=== PATIENT | female | born 1985 | race Caucasian/White ===

== ENCOUNTER 2020-10-17 00:33 | Day surgery (SDC) | payer OTHER, SELFPAY ==
[2020-10-16 10:08] VITALS: BMI 26.4
--- NOTE | 2020-10-16 12:19 | WPDANESEPPF ---
Anes - Initial Pre Proc Eval Procedure: Operation Date: 10/17/20 10:30 Proposed Procedures p Bilateral Augmentation Mammoplasty, - Andrew Pickering MD s Bilateral Breast Mastopexy, - Andrew Pickering MD s Abdominoplasty With Liposuction - Andrew Pickering MD Date/Time: 10/16/20 12:19 Surgeon: Andrew Pickering MD Pre Op Diagnosis: micromastia, skin laxity Patient Data Age: 35 Gender: F Height: 1.52 m Weight: 61.24 kg Allergies Allergy/AdvReac Type Severity Reaction Status Date / Time No Known Allergies Allergy Unknown Verified 10/17/20 06:27 Home Medications Medication Instructions Recorded Confirmed Type lovastatin 10 mg tablet 10 mg PO HS 07/21/20 10/17/20 History multivitamin 1 tablet PO DAILY 10/16/20 10/17/20 History sertraline 150 mg PO HS 10/16/20 10/17/20 History Patient hx anesthesia problems: none Family hx anesthesia problems: none [facility] Past Medical History Medical History (Updated 10/16/20 @ 12:19 by Karl Covarrubias MD) Anxiety High cholesterol Family History Family History Other High cholesterol Social History Social History Smoking status: Never smoker Alcohol intake: never Substance use: never Substance use type: does not use Living arrangements: with family Anes - Eval Final PreProcedure Day of Procedure 10/16/20 12:19 Patient weight: overweight Heart: regular rate and rhythm Lungs: clear to auscultation and normal air movement Airway: Mallampati scale class II Neurological: alert and oriented Last oral intake: >/= 8 hours ASA classification: II Emergent: no Anesthetic plan: proceed Anesthesia type and monitoring: general LMA Informed Consent: The patient's anesthetic plan and its attendant risks and benefits were discussed with the patient/family/POA. Questions were solicited and answers provided to the satisfaction of the patient/family/POA.
[2020-10-17] VITALS (9 sets, daily range): BP systolic 113–133; BP diastolic 57–80; PULSE 73–106; RESP 13–18; TEMP 36.1–36.7; O2SAT 93–100
--- NOTE | 2020-10-17 07:15 | WPDHPUPDATE1 ---
History and Physical Update Update Date/Time: 10/17/20 07:15 History and Physical has been reviewed, including an updated exam of the patient. There are NO changes in the patient's condition. Risks, benefits, and alternatives have been discussed and questions answered. Patient agrees to proceed with procedure.
--- NOTE | 2020-10-17 07:16 | W.PM.PROC2 ---
Procedure Note - Detailed Date of Procedure 10/17/20 Pre-op Diagnosis micromastia, skin laxity Post-op Diagnosis same Procedure Performed 1. Bilateral augmentation mastopexy 2. Progressive tension abdominoplasty 3. Suction lipectomy abdomen / flank Surgeon Andrew Pickering MD Anesthesia general Findings Invert T Mastopexy Superior Medial Pedicle Aldia Torres SoftTouch 290 Right - REF# [id number] SN [id number] Left - REF# [id number] SN [id number] Lipoaspirate 1400cc Description of Procedure She is here today for the above. Previously and again today the risks, benefits, alternatives were discussed in extensive detail. I wanted her to be very realistic about the risks involved as well as expectations. We discussed aftercare and what to monitor for. Made sure answered all of her questions to her satisfaction today and consent was obtained. Marked in the preoperative holding area with their verification. The patient was taken to the operating room placed supine on the operating table. Anesthesia was provided by anesthesiology. A surgical time-out was taken. We cleansed the skin and 1% lidocaine and 0.25% Marcaine with epinephrine was used anesthetize as a field block. She was prepped and draped in a standard sterile fashion. Breast Tegaderm nipple Patton were placed. A 15 blade used to make an incision just superior to the inframammary fold. Dissection was continued until the chest wall as identified. I incised the pectoralis major along its inferior border and completely released the inferior border leaving the medial border intact. I created a subpectoral pocket in the appropriate dimensions based on our preoperative planning for the implant. I then copiously irrigated with saline solution and verified a strict hemostasis. Next the use a triple antibiotic and Betadine containing solution to irrigate the pocket. I washed my gloves with the triple antibiotic and Betadine solution. We washed the implant immediately upon opening it with this solution and only opened it when we needed it. I used implant funnel and no-touch technique. The implant was introduced into the pocket using the funnel. Having verified positioning of the implant this was closed using 2-0 Vicryl. I then tailor tacked the breast. Placed in a sitting position verified markings. I marked out the nipple-areolar complex at 38 mm. This based on preoperative planning, intraop observation and measurements which were all in full agreement. I then placed supine. I de-epithelialized the pedicle. I resected the inferior and central keel. Elevated medial and lateral flaps. Closed using 2-0 PDS along the IMF and vertical. I closed around the Guillermo using 3-0 Monocryl. Vertical 3-0 Monocryl. 3-0 strata fix along the IMF and final closure using running subcuticular 4-0 Monocryl. Abdomen I placed the patient in a flexed position to verify the upper and lower markings would reach. I then placed her supine. A thorough abdominal examination was completed. Stab incisions were made and used tumescent solution. Suction lipectomy was completed of the abdomen and flank in multiple planes and passes using a 4 mm basket cannula based on S.A.F.E. technique to a rolling pinch test and preoperative planning. This was supine and in bilateral lateral decubitus positions. A 10 blade was used to make the upper incision. I continued dissection down to the level of fascia. Elevated just what was necessary for repair of the diastasis and discontinuous undermining otherwise. I then again flexed the bed to verify the upper skin flap would reach the lower markings without tension. Once verified I placed her supine once again and a 10 blade used to make the lower incision. I elevated up to level the umbilicus and left the umbilicus intact on a well-vascularized stalk. The intervening tissue was removed. A 2 mm blunt cannula and bupivicaine was injected deep to fascia bilateral. I p
[2020-10-17 07:17] LABS: Urine Cotinine NEGATIVE
[2020-10-17] MEDS: LACTATED RINGERS 1,000 ML 30 ML IV CONT ×2 (07:23→13:53)
[2020-10-17] MEDS: TRANEXAMIC ACID 1,000MG/ISO100 1,000 MG/100 ML BAG 200 MG IVPB (07:51)
[2020-10-17] MEDS: ceFAZolin 2 GM/D5W 50 ML 2 GM/50 ML BAG IVPB (08:14)
[2020-10-17] MEDS: LIDO 1%/EPINEPHRINE 1:100,000 20 ML VIAL 30 ML INFILTRATE (08:19)
--- NOTE | 2020-10-17 13:55 | SUR.OPER ---
verified verbally w/dr jones that all specimens can be discarded.
[2020-10-17] MEDS: fentaNYL CITRATE INJ (*CRX) 100 MCG/2 ML VIAL 25 MCG IV PUSH ×4 (14:45→15:05)
--- NOTE | 2020-10-17 14:57 | SUR.PHASEI ---
1256 sbar faxed floor notified
[2020-10-17] MEDS: LACTATED RINGERS 1,000 ML 125 ML IV CONT (15:30)
[2020-10-17] MEDS: MORPHINE SULFATE (*CRX) 2 MG/ML INJ IV PUSH ×4 (15:43→22:31)
--- NOTE | 2020-10-17 15:56 | OBPPTRN ---
1527 Patient transferred to post room #287 via bed. Support person present. Oriented to unit, room, information board, admission packet and security measures. Patient verbalizes understanding.
[2020-10-17] MEDS: carisoprodoL (*CRX) 350 MG TABLET PO (17:44)
[2020-10-17] MEDS: SERTRALINE HCL 50 MG TABLET 150 MG PO (21:36)
[2020-10-17] MEDS: LOVASTATIN 10 MG TABLET PO (21:36)
[2020-10-17] MEDS: ENOXAPARIN 40 MG/0.4 ML SYRINGE SUB-Q (21:36)
[2020-10-17] MEDS: DOCUSATE SODIUM 100 MG CAPSULE PO (21:36)
[2020-10-17] MEDS: oxyCODONE/ACETAMINOPHEN (*CRX) 5-325 MG TABLET PO (21:38)
[2020-10-18] MEDS: carisoprodoL (*CRX) 350 MG TABLET PO ×2 (00:58→05:44)
[2020-10-18 01:00] VITALS: BP 107/64; PULSE 100; RESP 16; TEMP 36.9; O2SAT 97
[2020-10-18 01:06] VITALS: PULSE 100; RESP 16; O2SAT 97
[2020-10-18] MEDS: MORPHINE SULFATE (*CRX) 2 MG/ML INJ IV PUSH ×3 (01:14→07:22)
[2020-10-18 03:46] VITALS: PULSE 100; RESP 16; O2SAT 95
[2020-10-18] MEDS: oxyCODONE/ACETAMINOPHEN (*CRX) 5-325 MG TABLET PO ×2 (03:59→10:25)
--- NOTE | 2020-10-18 06:56 | WPDPN ---
Progress Note: A&P Assessment and Plan (1) Skin laxity: Code(s): L57.4 - Cutis laxa senilis Status: Acute Assessment and Plan: She is doing well after bilateral augmentation mastopexy and abdominoplasty with suction lipectomy of abdomen and flank. Will discharge home. Follow up in 1 week. Today we had a lengthy conversation with her about the care. What to monitor for. Made sure answered all of their questions to their satisfaction. We discussed DVT prophylaxis and what her options are. We have reviewed Caprini score and recommendations. She would like to use ambulation and ASA at home. I was very up front honest about the literature regarding aspirin for DVT prophylaxis as well as risks. All questions were answered to her satisfaction as well as her 's. They voiced an understanding. Will discharge home. Call with any questions or concerns. (2) Micromastia: Code(s): N64.82 - Hypoplasia of breast Status: Acute (3) Breast ptosis: Code(s): N64.81 - Ptosis of breast Status: Acute Review of Systems Review of Systems: All systems reviewed & are unremarkable except as noted in HPI and below Exam Narrative: Exam Narrative: Alert and oriented no obvious distress Sitting at the bedside. Able to easily hold a conversation. Respiratory is unlabored Bilateral breasts with no signs of infection. No hematoma. No seroma. Good color and capillary refill. Abdomen healing well. No signs of infection. No hematoma. No seroma. Good color and capillary refill. No calf tenderness. Negative Homans. Objective Data Vital Signs Vital Signs: Vital Signs - 24 hr 10/17/20 14:00 10/17/20 14:15 10/17/20 14:30 Temperature 36.2 C L Pulse Rate 106 H 106 H 105 H Respiratory Rate 18 18 16 Blood Pressure 127/80 120/75 116/77 Pulse Oximetry 100 100 100 10/17/20 14:45 10/17/20 15:00 10/17/20 15:15 Temperature Pulse Rate 99 106 H 105 H Respiratory Rate 16 13 16 Blood Pressure 113/67 120/71 124/67 Pulse Oximetry 94 93 95 10/17/20 15:27 10/17/20 19:55 10/18/20 01:00 Temperature 36.6 C 36.7 C 36.9 C Pulse Rate 104 H 100 100 Respiratory Rate 16 18 16 Blood Pressure 123/73 113/65 107/64 Pulse Oximetry 96 96 97 10/18/20 01:06 10/18/20 03:46 Temperature Pulse Rate 100 100 Respiratory Rate 16 16 Blood Pressure Pulse Oximetry 97 95 Intake/Output Intake/Output: Intake & Output 10/15/20 10/16/20 10/17/20 10/18/20 23:59 23:59 23:59 23:59 Intake Total 990 300 Output Total 740 750 Balance 250 -450 Meds/Results Medications: Active Medications Generic Name Dose Route Start Last Admin Trade Name Freq PRN Reason Stop Dose Admin Carisoprodol 350 mg 10/17/20 18:00 10/18/20 05:44 Carisoprodol (*Crx) 350 Mg Tablet PO 350 mg Q6HR MARIE Administration Docusate Sodium 100 mg 10/17/20 21:00 10/17/20 21:36 Docusate Sodium 100 Mg Capsule PO 100 mg Q12HR MARIE Administration Enoxaparin Sodium 40 mg 10/17/20 20:00 10/17/20 21:36 Enoxaparin 40 Mg/0.4 Ml Syringe SUB-Q 40 mg DAILY@2000 MARIE Administration Lactated Ringer's 1,000 mls @ 125 mls/hr 10/17/20 13:40 10/17/20 15:30 Lr - Lactated Ringers Iv IV CONT 125 mls/hr .Q8H MARIE Administration Lovastatin 10 mg 10/17/20 21:00 10/17/20 21:36 Lovastatin 10 Mg Tablet PO 10 mg HS MARIE Administration Morphine Sulfate 2 mg 10/17/20 13:38 10/18/20 04:56 Morphine Sulfate (*Crx) 2 Mg/Ml Inj IV PUSH 2 mg Q2H PRN Administration Pain Ondansetron HCl 4 mg 10/17/20 13:38 Ondansetron Inj 4 Mg/2 Ml Vial IV PUSH Q6H PRN Nausea Oxycodone/Acetaminophen 1 - 2 tablet 10/17/20 13:38 10/18/20 03:59 Oxycodone/Acetaminophen (*Crx) 5-325 Mg Tablet PO 2 tablet Q6H PRN Administration Pain Sertraline HCl 150 mg 10/17/20 21:00 10/17/20 21:36 Sertraline Hcl 50 Mg Tablet PO 150 mg HS MARIE Administration Labs Labs: Laborat
--- NOTE | 2020-10-18 07:03 | P.DS_ITS ---
DS: Admitting Diagnosis Admitting Diagnosis Admitting Diagnosis: Micromastia Breast ptosis Skin laxity Localized adiposity DS: Discharge Diagnosis Discharge Diagnosis (1) Micromastia: Code(s): N64.82 - Hypoplasia of breast Status: Acute (2) Breast ptosis: Code(s): N64.81 - Ptosis of breast Status: Acute (3) Skin laxity: Code(s): L57.4 - Cutis laxa senilis Status: Acute (4) Localized adiposity of flank: Code(s): E65 - Localized adiposity Status: Acute DS: Summary Hospital Course Hospital Course: Patient underwent augmentation mastopexy with abdominoplasty and suction lipectomy of abdomen and flank. Postoperatively she has done very well. Tolerating diet. Ambulating. Controlled. Will discharge home. We discussed her options for DVT prophylaxis. In the facility she will receive Lovenox. After discharge and review of Caprini scale she has elected to proceed with early ambulation and she would like to do aspirin as well. I will see her back. She will call with any questions or concerns. Time Spent with Patient Time attestation: Total time spent providing and/or coordinating discharge services:30 min Exam Narrative: Exam Narrative: Alert and oriented no obvious distress Sitting at the bedside. Able to easily hold a conversation. Respiratory is unlabored Bilateral breasts with no signs of infection. No hematoma. No seroma. Good color and capillary refill. Abdomen healing well. No signs of infection. No hematoma. No seroma. Good color and capillary refill. No calf tenderness. Negative Homans. DS: Data Data Completed and Pending Labs on day of discharge: Labs from last 24 hours 10/17/20 06:50 Cotinine Negative Discharge Plan Discharge Patient Disposition: Home, Self-Care Discharge Instructions: POST OPERATIVE DISCHARGE INSTRUCTIONS ANDREW PICKERING M.D. [facility] [place] [facility] [place] [address] * No driving for 24 hours after anesthesia and while you are taking pain medication. * Take all prescribed medication as directed * Diet as tolerated. * No lifting or activity that raises blood pressure for 48 hours. * Regular walking / ambulation. * No showering until directed to. Once you shower do not take pain medication before showering as the combination of medication and heat may cause you to feel dizzy or pass out. * No pools or tubs for 2 weeks. * Call with any questions or concerns. * Slowly stand up straight as tolerated over the week. * No straining or lifting more than 20 pounds for 6 weeks. * Dressing Care: May shower. If you have any questions or concerns, please call the office . If it is after hours you will be directed to the international travel consultant exchange. Shortness of breath, chest pain, or other medical emergency dial 911 / proceed to the Emergency Room. Stand Alone Forms: General Discharge Instructions Follow-up/Referrals: Andrew Pickering MD [Physician] - 1 Week Discharge Medications: Continued lovastatin 10 mg tablet 10 mg PO HS RF: 0 sertraline 100 mg tablet 150 mg PO HS RF: 0 multivitamin Tablet 1 tablet PO DAILY RF: 0
[2020-10-18] MEDS: DOCUSATE SODIUM 100 MG CAPSULE PO (07:21)
--- NOTE | 2020-10-18 07:21 | WPDANESPN ---
Anes - Prog Note Post-Op Date/Time: 10/18/20 07:21 Cardiovascular status: normal Respiratory status: normal Airway patency: baseline Mental status: baseline Vital Signs: Last Vital Signs Temp 36.9 C 10/18/20 01:00 Pulse 100 10/18/20 03:46 Resp 16 10/18/20 03:46 BP 107/64 10/18/20 01:00 Pulse Ox 95 10/18/20 03:46 Pain Score (VAS): 2/10 I/O: Intake & Output 10/17/20 10/17/20 10/18/20 15:59 23:59 07:59 Intake Total 400 590 300 Output Total 140 600 750 Balance 260 10 450 Post-procedural complaints: none Patient Feedback: Patient satisfied with anesthetic care.
[2020-10-18 08:05] VITALS: BP 108/65; PULSE 101; RESP 16; TEMP 37.3; O2SAT 93
== END 2020-10-18 12:00 | disposition home or self-care (01) ==
LOC: ANHSURGERY 07:34 → ANHOB2 15:30
PROVIDERS: PCP Physician Assistant; Visit Provider Surgery Plastic and Reconstructive Surgery
PROC: (CPT 19325; principal; 2020-10-17 07:30)
PROC: (CPT 19316; 2020-10-17 07:30)
PROC: (CPT 19325; 2020-10-17 07:30)
DX: Z41.1 Encounter for cosmetic surgery (principal); N64.82 Hypoplasia of breast; L57.4 Cutis laxa senilis; N64.81 Ptosis of breast; E65 Localized adiposity; E78.00 Pure hypercholesterolemia, unspecified; F41.9 Anxiety disorder, unspecified; Z79.899 Other long term (current) drug therapy
CPT/HCPCS: 19325; 19316; 15877; 80307; 99199; A9270; C9290; J0171; J0330; J0690; J1100; J1200; J1580; J1650; J2250; J2270; J2370; J2405; J2704; J3010; J7030; J7120

== ENCOUNTER 2021-02-07 08:28 | Emergency (ER) | payer OTHER, SELFPAY ==
[2021-02-07 08:33] VITALS: BP 110/60; PULSE 78; RESP 16; TEMP 36.9; O2SAT 99
--- NOTE | 2021-02-07 08:33 | ED.URI ---
HPI - URI/Sore Throat General Chief Complaint: Upper Respiratory Infection Stated Complaint: sore throat Time Seen by Provider: 02/07/21 08:33 Source: patient and RN notes reviewed History of Present Illness HPI Narrative: Patient is a 36-year-old female who presents the urgent care with complaints of a sore throat that started yesterday. Patient states that she had body aches, chills and sweats all night long and was taking Tylenol and ibuprofen for her symptoms. Patient states that she did have a negative rapid Covid test yesterday. Denies of any vomiting or abdominal pain. States that she has a history of strep throat. No other acute complaints. No acute distress noted. Patient aware of the plan of care. Some parts of this dictation were generated by voice recognition software and may contain typographical and/or grammatical inaccuracies. Related Data Home Medications Medication Instructions Recorded Confirmed lovastatin 10 mg tablet 10 mg PO HS 07/21/20 10/17/20 multivitamin 1 tablet PO DAILY 10/16/20 10/17/20 sertraline 150 mg PO HS 10/16/20 10/17/20 lovastatin 20 mg PO DAILY 02/07/21 02/07/21 Allergies Allergy/AdvReac Type Severity Reaction Status Date / Time No Known Allergies Allergy Unknown Verified 12/04/20 14:48 Review of Systems Review of Systems: CONSTITUTIONAL: Reports of chills and sweats EYES: Denies visual changes, redness, or discharge. ENT: Denies rhinorrhea, congestion, otalgia. Reports a sore throat CARDIOVASCULAR: Denies chest pain, palpitations, or edema. RESPIRATORY: Denies cough or dyspnea. GASTROINTESTINAL: Reports of nausea without abdominal pain, vomiting or diarrhea GENITOURINARY: Denies dysuria or hematuria. SKIN: Denies rash or itching. MUSCULOSKELETAL: Denies back pain, joint pain,. Reports of body aches NEUROLOGIC: Denies headache, numbness, or weakness. All other systems reviewed are negative, except as documented in HPI. [facility] Past Medical History Medical History Anxiety High cholesterol Family History Family History Other High cholesterol Social History Social History (Reviewed 12/04/20 @ 14:51 by Helga Gray [facility]iffany Smoking status: Never smoker Alcohol intake: never Substance use: never Substance use type: does not use Comments At the time of my signature, I reviewed and agree with the nursing past medical, surgical, social, and family history. There is no relevant family history pertinent to the patient complaint. Exam Narrative: GENERAL: This is a well-nourished, well-developed patient, in no apparent distress. HEAD: normocephalic, atraumatic. EYES: PERRL. Sclera clear/white. Vision is grossly intact. EARS: External ears normal, auditory canals clear and without drainage, TMs normal without perforation. Hearing grossly intact. NOSE: External nose normal with no obvious nasal discharge, nares without redness, no rhinorrhea. THROAT: Mucous membranes moist, mild erythema noted posterior oropharynx with mild postnasal drainage NECK: Neck supple CARDIOVASCULAR: Regular rate and rhythm without murmurs, gallops, or rubs. RESPIRATORY: Clear to auscultation. Breath sounds equal bilaterally. No wheezes, rales, or rhonchi. GASTROINTESTINAL: Abdomen soft, non-tender, nondistended. Bowel sounds are active. SKIN: warm, intact with no suspicious lesions or rash, good texture and turgor. NEURO: awake, alert, and oriented to person, place and time. There were no obvious focal neurologic abnormalities. EXTREMITIES: No clubbing, cyanosis, or edema. Course Vital Signs Vital signs: Vital Signs Temperature 98.4 F 02/07/21 08:33 Pulse Rate 78 02/07/21 08:33 Respiratory Rate 16 02/07/21 08:33 Blood Pressure 110/60 02/07/21 08:33 Pulse Oximetry 99 02/07/21 08:33 Temperature 98.4 F 02/07/21 08:33 Pulse Rate 78 02/07/21
== END 2021-02-07 09:23 | disposition home or self-care (01) ==
PROVIDERS: Emergency Provider Nurse Practitioner Family; PCP Physician Assistant
DX: J02.9 Acute pharyngitis, unspecified (principal); E78.00 Pure hypercholesterolemia, unspecified; F41.9 Anxiety disorder, unspecified
CPT/HCPCS: 87081; 87880; 99213; G0463

== ENCOUNTER 2023-12-25 10:38 | Emergency (ER) | payer OTHER, SELFPAY ==
[2023-12-25 10:56] VITALS: BP 104/82; PULSE 80; RESP 14; TEMP 36.5; O2SAT 100
--- NOTE | 2023-12-25 11:56 | ED.GENADULT ---
HPI - General Adult General Chief complaint: Back Pain/Injury Stated complaint: Back and hip pain Time Seen by Provider: 12/25/23 11:56 Source: patient, RN notes reviewed and old records reviewed Mode of arrival: ambulatory Limitations: no limitations History of Present Illness HPI narrative: 38-year-old female presents to the [facility] with complaints of right low back pain radiating into the hip for approximately 1 month. Denies any injuries. Denies abdominal pain, chest pain. Walks with a normal gait. No midline tenderness. No loss retention of bowel or bladder. Patient states that she did strike to see a chiropractor, was told to continue to exercise and lift weights. States the pain got worse. No bruising, no rash, no swelling noted. Patient denies any urinary symptoms Onset (ago): month(s) (1) Related Data Home Medications Medication Instructions Recorded Confirmed sertraline 100 mg tablet 150 mg PO HS 10/16/20 12/25/23 Allergies Allergy/AdvReac Type Severity Reaction Status Date / Time No Known Allergies Allergy Unknown Verified 12/04/20 14:48 Review of Systems Review of Systems: All systems reviewed & are unremarkable except as noted in HPI and below Constitutional: Constitutional: Reports no additional constitutional complaints Eyes: Eyes: Reports no additional eye complaints ENT: Reports system reviewed and no additional complaints, except as documented Cardiovascular: Cardiovascular: Reports no additional cardiovascular complaints, Denies chest pain and Denies dyspnea Respiratory: Respiratory: Reports no additional respiratory complaints, Denies chest congestion, Denies cough and Denies dyspnea Gastrointestinal: Gastrointestinal: Reports no additional gastrointestinal complaints, Denies abdominal pain, Denies nausea and Denies vomiting Musculoskeletal: Musculoskeletal: Reports as per HPI Integumentary/Breasts: Skin/Breast: Reports system reviewed and no additional complaints, except as docu Neurologic: Reports system reviewed and no additional complaints, except as documented Psychiatric: Psychiatric: Reports no additional psychiatric complaints Allergic/Immunologic: Allergic/Immunologic: Reports no additional allergic/immunologic complaints PMFSH Past Medical History Medical History Anxiety High cholesterol Family History Family History Other High cholesterol Social History Social History Smoking status: Never smoker Alcohol intake: never Substance use: never Substance use type: does not use Living arrangements: with family Comments At the time of my signature, I reviewed and agree with the nursing past medical, surgical, social, and family history. There is no relevant family history pertinent to the patient complaint. Exam Const: General: cooperative, healthy appearing, comfortable, no acute distress, well developed, alert and well nourished Nutritional Appearance: well nourished Orientation/consciousness: patient oriented x3 Limitations: no limitations HENMT: Head: normal to inspection Ears: hearing grossly normal bilaterally and external ears normal Face/Nose/Sinus: Normal external nose present, Normal nares present, Normal nasal mucous membranes and turbinates present, normal facial exam and face symmetric Face and sinus: normal facial exam and face symmetric Eyes: General: appearance normal, both eyes and all related structures Alignment and Position: alignment normal Periorbital: periorbital findings normal Neck: Neck: normal visual inspection, full ROM, no lymphadenopathy and no meningeal signs Chest: Chest palpation & inspection: normal inspection of the chest Resp: Effort & Inspection: normal respiratory effort and able to speak in complete sentences Cardio: Rate: regular rate GI: GI
== END 2023-12-25 12:13 | disposition home or self-care (01) ==
PROVIDERS: Emergency Provider Nurse Practitioner; PCP Physician Assistant
DX: S39.012A Strain of muscle, fascia and tendon of lower back, initial encounter (principal); X58.XXXA Exposure to other specified factors, initial encounter; F41.9 Anxiety disorder, unspecified; E78.00 Pure hypercholesterolemia, unspecified
CPT/HCPCS: 99213; G0463